=== PATIENT | male | born 1950 | race Caucasian/White ===

== ENCOUNTER 2018-12-25 11:23 | Inpatient (IN) | payer BC, MEDICARE, OTHER ==
[~2018-12-25] VITALS: Ht 177.8 cm; Wt 107.0 kg
[2018-12-25] MEDS ORDERED: IPRATROPIUM NEB FS 0.5 MG/2.5 ML AMPUL.NEB NEB ONE ×2 (11:30→13:00)
[2018-12-25] MEDS ORDERED: ALBUTEROL FS 2.5 MG/3 ML VIAL.NEB CONTNEB ONE ×2 (11:30→13:00)
[2018-12-25] MEDS ORDERED: methylPREDNISolone SOD SUCC 125 MG/2ML VIAL IV ONE (11:30)
[2018-12-25] MEDS ORDERED: ALBUTEROL FS 2.5 MG/3 ML VIAL.NEB ONE ×2 (11:31→12:36)
[2018-12-25] MEDS ORDERED: IPRATROPIUM NEB FS 0.5 MG/2.5 ML AMPUL.NEB ONE ×2 (11:31→12:36)
[2018-12-25] MEDS ORDERED: methylPREDNISolone SOD SUCC 125 MG/2ML VIAL ONE (11:34)
[2018-12-25 11:54] LABS: BASOPHILS # (AUTO) 0.1 /CMM (0.0-0.2); EOSINOPHILS % (AUTO) 5.7 % (0.0-6.0); HEMATOCRIT 45 % (39-51); HEMOGLOBIN 15.2 g/dL (13.5-17.5); LYMPHOCYTES # (AUTO) 3.6 /CMM (0.8-4.8); LYMPHOCYTES % (AUTO) 36.1 % (20.0-44.0); MEAN CORPUSCULAR HGB CONC 34 g/dl (31.0-36.0); MEAN CORPUSCULAR VOLUME 94 fL (80-96); MONOCYTES # (AUTO) 0.6 /CMM (0.1-1.30); MONOCYTES % (AUTO) 6.1 % (2.0-12.0); NEUTROPHILS % (AUTO) 51.1 % (43.0-81.0); PLATELET COUNT (AUTO) 170 /CMM (150-450); RED BLOOD CELL COUNT(AUTO) 4.81 MIL/uL (4.5-6.0); WHITE BLOOD COUNT (AUTO) 9.9 K/uL (4.3-11.0)
[2018-12-25 11:56] LABS: CALCIUM, SERUM 8.6 mg/dL (8.5-10.1); CARBON DIOXIDE 21 mmol/L (21-32); CHLORIDE 104 mmol/L (98-107); CREATININE 0.9 mg/dL (0.6-1.3); GLUCOSE 182 mg/dL (74-106); SODIUM SERUM 133 mmol/L (136-145); UREA NITROGEN, BLOOD 13 mg/dL (7-18)
[2018-12-25] MEDS ORDERED: UMEC1BLS IH (11:58)
[2018-12-25] MEDS ORDERED: ALBU8.5H8 INH (11:58)
[2018-12-25] MEDS ORDERED: SIMV40TA5 PO (11:58)
[2018-12-25 12:09] LABS: ALKALINE PHOSPHATASE 74 U/L (46-116); ASPARTATE AMINOTRANSFERASE 33 U/L (15-37); B-TYPE NATRIURETIC PEPTIDE 117 PG/ML (0-125); BILIRUBIN,TOTAL 0.6 mg/dL (0.2-1.0); TOTAL PROTEIN, SERUM 7.3 g/dL (6.4-8.2)
[2018-12-25 12:17] LABS: ALBUMIN 3.4 g/dL (3.4-5.0)
[2018-12-25 12:19] LABS: BILIRUBIN,DIRECT 0.1 mg/dL (0.0-0.2)
[2018-12-25 12:20] LABS: ALANINE AMINOTRANSFERASE 31 U/L (12-78)
--- NOTE | 2018-12-25 13:54 | NUR ---
NEW ADMISSION REPORT FROM ER NURSE AMADA. PATIENT IS BEING ADMITTED TO [facility] FOR COPD EXACERBATION. PER REPORT PATIENT IS TACHYCARDIC WITH HR OF 107 RR OF 22 AND ON THE 5 LITER SIMPLE FACE MASK AT 96%. PER REPORT PATIENT IS NOT IN ANY DISTRESS. PATIENT TO BE ADMITTED TO BED 325-2
--- NOTE | 2018-12-25 14:00 | NUR ---
PT BIBS AXOX4 C/O SOB, HX COPD
--- NOTE | 2018-12-25 14:01 | NUR ---
PT GOING TO ROOM 325-2 REPORT GIVEN TO Annika RN, PT STABLE [id number], ON 5L SIMPLE MASK/MIST
[2018-12-25 16:00] VITALS: BP 137/80
[2018-12-25] MEDS ORDERED: ACETAMINOPHEN 325 MG TABLET PO PRN (17:30)
[2018-12-25] MEDS ORDERED: HYDROCODONE/APAP 5/325MG 1 EACH TABLET PO PRN (17:30)
[2018-12-25] MEDS ORDERED: Z GUARD REMEDY 2 OZ OINT TP PRN (17:30)
[2018-12-25] MEDS ORDERED: ZOLPIDEM TARTRATE 5 MG TABLET PO PRN (17:30)
[2018-12-25] MEDS ORDERED: MAG HYDROX/AL HYDROX/SIMETH 30 ML UDC PO PRN (17:30)
[2018-12-25] MEDS ORDERED: ONDANSETRON HCL/PF 4 MG/2 ML VIAL IVP PRN (17:30)
[2018-12-25] MEDS ORDERED: MAGNESIUM HYDROXIDE 30 ML UDC PO PRN (17:30)
[2018-12-25] MEDS ORDERED: CEFTRIAXONE 1 G VIAL IM SCH (17:30)
[2018-12-25] MEDS: AZITHROMYCIN 500 MG in IV D5W 250 ML IV SCH (19:04)
[2018-12-25] MEDS: ALBUTEROL FS 2.5 MG/0.5 ML VIAL.NEB NEB SCH (19:20)
[2018-12-25] MEDS: IPRATROPIUM NEB FS 0.5 MG/2.5 ML AMPUL.NEB NEB SCH (19:20)
[2018-12-25 20:00] VITALS: BP 151/76
--- NOTE | 2018-12-25 20:00 | NUR ---
SUPERVISOR ACCOUNTS RECEIVABLE OPENING NOTES RECEIVED PATIENT IN BED AWAKE, ALERT AND ORIENTED X4, VERBALLY RESPONSIVE, ABLE TO MAKE NEEDS KNOWN. BREATHING EVEN AND UNLABORED. NO SOB NOTED. ON 3LPM OXYGEN VIA NC. TOLERATING WELL. NO COMPLAINTS OF PAIN OR DISCOMFORT. NO FACIAL GRIMACING .IV ON LEFT HAND INTACT AND PATENT WITH IV ATB RUNNING AT THE MOMENT. SKIN DRY AND WARM TO TOUCH. AFEBRILE. ALL OTHER NEEDS ATTENDED TO .SAFETY MEASURES IN PLACE. CALL LIGHT WITHIN REACH, WILL CONTINUE TO MONITOR L
[2018-12-25] MEDS: CEFTRIAXONE 1 G in IV D5W 50 ML IV SCH (20:10)
[2018-12-26] VITALS (7 sets, daily range): BP systolic 103–154; BP diastolic 58–79
--- NOTE | 2018-12-26 03:00 | NUR ---
WORSHIP DIRECTOR NOTES PATIENT SLEEPING, EASILY AROUSABLE. NO DISTRESS. BREATHING EVEN AND UNLABORED. ON 3LPM OXYGEN VIA NC. SP02 WNL. NO COMPLAINTS OF PAIN OR DISCOMFORT. ALL NEEDS MET. WILL CONTINUE TO MONITOR.
--- NOTE | 2018-12-26 06:30 | NUR ---
WAFER MACHINE OPERATOR CLOSING NOTES PATIENT RESTING IN BED. NO ACUTE CHANGES THROUGHOUT SHIFT. BREATHING EVEN AND UNLABORED. NO SOB NOTED. ON 3LPM OXYGEN VIA NC. TOLERATING WELL. NO COMPLAINTS OF PAIN OR DISCOMFORT. NO FACIAL GRIMACING. IV ON LEFT HAND INTACT AND PATENT. ALL OTHER NEEDS ATTENDED TO .SAFETY MEASURES IN PLACE. CALL LIGHT WITHIN REACH. WILL ENDORSE TO ONCOMING NURSE FOR JOSE.
[2018-12-26 07:29] LABS: BASOPHILS % (AUTO) 0.1 % (0.0-2.0); HEMATOCRIT 45 % (39-51); LYMPHOCYTES # (AUTO) 1.2 /CMM (0.8-4.8); LYMPHOCYTES % (AUTO) 7.7 % (20.0-44.0); MEAN CORPUSCULAR HGB CONC 33 g/dl (31.0-36.0); MEAN CORPUSCULAR VOLUME 94 fL (80-96); MONOCYTES # (AUTO) 0.7 /CMM (0.1-1.30); MONOCYTES % (AUTO) 4.9 % (2.0-12.0); NEUTROPHILS # (AUTO) 13.1 /CMM (1.8-8.9); NEUTROPHILS % (AUTO) 87.3 % (43.0-81.0); PLATELET COUNT (AUTO) 180 /CMM (150-450); RED BLOOD CELL COUNT(AUTO) 4.78 MIL/uL (4.5-6.0)
[2018-12-26 07:46] LABS: CALCIUM, SERUM 8.7 mg/dL (8.5-10.1); CREATININE 1.2 mg/dL (0.6-1.3); MAGNESIUM 2.5 mg/dL (1.8-2.4); PHOSPHORUS 3.8 mg/dL (2.5-4.9); POTASSIUM 4.3 mmol/L (3.5-5.1)
[2018-12-26] MEDS: ALBUTEROL FS 2.5 MG/0.5 ML VIAL.NEB NEB SCH ×4 (08:03→20:03)
[2018-12-26] MEDS: IPRATROPIUM NEB FS 0.5 MG/2.5 ML AMPUL.NEB NEB SCH ×4 (08:03→20:03)
[2018-12-26] MEDS: SIMVASTATIN 40 MG TABLET PO SCH ×2 (08:10→21:41)
[2018-12-26] MEDS: PANTOPRAZOLE 40 MG TABLET.DR PO SCH (08:10)
[2018-12-26] MEDS: methylPREDNISolone SOD SUCC 125 MG/2ML VIAL IV SCH ×3 (08:11→17:20)
[2018-12-26] MEDS: FLUTICASONE/VILANTEROL 1 EACH BLST.W.DEV IH SCH (08:12)
[2018-12-26] MEDS: AZITHROMYCIN 500 MG in IV D5W 250 ML IV SCH (17:19)
[2018-12-26] MEDS: CEFTRIAXONE 1 G in IV D5W 50 ML IV SCH (18:37)
--- NOTE | 2018-12-26 19:22 | NUR ---
PATIENT SITTING ON BED, AT BEDSIDE. NO DISTRESS. BREATHING EVEN AND UNLABORED. ON 3LPM OXYGEN VIA NC. NO COMPLAINTS OF PAIN OR DISCOMFORT. ALL NEEDS MET. WILL ENDORSE TO NEXT SHIFT
--- NOTE | 2018-12-26 19:55 | NUR ---
MS RN NOTE: PATIENT RESTING IN BED, NO ACUTE DISTRESS NOTED, FAMILY AT BEDSIDE. BREATHING EVEN AND UNLABORED, NO SOB NOTED. IV TO LEFT HAND IN PLACE. BED LOCKED AND IN LOWEST POSITION, CALL LIGHT IN REACH, WILL CONTINUE TO MONITOR.
--- NOTE | 2018-12-26 22:50 | NUR ---
MS RN NOTE: REPORT GIVEN TO NILS CABRERA FOR CONTINUATION OF CARE. PATIENT RESTING IN BED, NO ACUTE DISTRESS NOTED. WILL CONTINUE TO MONITOR.
--- NOTE | 2018-12-26 22:50 | NUR ---
RN MS NOTES RECEIVED PATIENT IN BED AWAKE ALERT AND ORIENTED X 4, VERBALLY RESPONSIVE, RESPIRATIONS EVEN AND UNLABORED CURRENTLY ON 02 VIA NC , NO DISTRESS PRESENT, DENIES ANY PAIN OR DISCOMFORT AT THIS TIME, IV SITE TO LEFT HAND #22 G INTACT AND PATENT , NO REDNESS, NO INFILTRATION PRESENT, ORIENTED TO STAFF AND CALL LIGHT, SAFETY PRECAUTIONS IN PLACE, SAFETY PRECAUTIONS IN PLACE, LOW BED AND LOCKED, ALL NEEDS ATTENDED REMAINS COMFORTABLE AT THIS TIME, WILL CONTINUE TO ATTENDS NEEDS.
--- NOTE | 2018-12-27 06:44 | NUR ---
RN MS CLOSING NOTES PATIENT IN BED AWAKE ALERT AND ORIENTED X 4, VERBALLY RESPONSIVE, RESPIRATIONS EVEN AND UNLABORED CURRENTLY ON 02 VIA NC , NO DISTRESS PRESENT, DENIES ANY PAIN OR DISCOMFORT AT THIS TIME, IV SITE TO LEFT HAND #22 G INTACT AND PATENT , NO REDNESS, NO INFILTRATION PRESENT, CALL LIGHT KEPT WITHIN REACH, URINAL OFFERED AND WITHIN REACH, SAFETY PRECAUTIONS IN PLACE, LOW BED AND LOCKED, ALL NEEDS ATTENDED REMAINS COMFORTABLE AT THIS TIME, WILL CONTINUE TO MONITOR AND ENDORSE TO NEXT SHIFT.
--- NOTE | 2018-12-27 07:20 | NUR ---
RN NOTES PATIENT A/OX4, BREATHING EVEN AND UNLABORED AT THIS TIME, REMOVED O2 INH, AND WILL MONITOR IN ROOM AIR. PATIENT DENIES DIFFICULTY BREATHING, HE STATED HE FELT HE WAS OK LAST NIGHT WITHOUT ANY OXYGEN. KEPT PATIENT COMFORTABLE, CALL LIGHT WITHIN REACH, WILL CONTINUE TO MONITOR.
[2018-12-27 08:00] VITALS: BP 147/80
--- NOTE | 2018-12-27 08:00 | NUR ---
RN NOTES PATIENT NOTED TO HAVE SPO2 OF 87% IN ROOM AIR, INFORMED PATIENT TO USE OXYGEN AT 2LPM VIA NC TO KEEP SPO2 > 90-92%. SLIGHTLY LABORED BREATHING. BUT NO SOB. PATIENT AGREED WITH USING O2 INHALATION.
[2018-12-27] MEDS: PANTOPRAZOLE 40 MG TABLET.DR PO SCH (08:28)
[2018-12-27] MEDS: methylPREDNISolone SOD SUCC 125 MG/2ML VIAL IV SCH ×2 (08:28→12:43)
[2018-12-27] MEDS: FLUTICASONE/VILANTEROL 1 EACH BLST.W.DEV IH SCH (08:28)
[2018-12-27] MEDS: ALBUTEROL FS 2.5 MG/0.5 ML VIAL.NEB NEB SCH ×4 (08:32→19:58)
[2018-12-27] MEDS: IPRATROPIUM NEB FS 0.5 MG/2.5 ML AMPUL.NEB NEB SCH ×4 (08:32→19:58)
[2018-12-27 16:00] VITALS: BP 135/68
[2018-12-27] MEDS: methylPREDNISolone SOD SUCC 40 MG/ML VIAL IV SCH (17:03)
[2018-12-27] MEDS: AZITHROMYCIN 500 MG in IV D5W 250 ML IV SCH (17:07)
[2018-12-27] MEDS: CEFTRIAXONE 1 G in IV D5W 50 ML IV SCH (18:09)
--- NOTE | 2018-12-27 18:52 | NUR ---
RN NOTES PATIENT A/OX4, STILL ON O2 AT 2LPM VIA NC. BREATHING EVEN AND UNLABORED, NO SOB NOTED. PATIENT'S OXYGEN TANK AT BEDSIDE, DELIVERED BY INSURANCE. DENIES PAIN OR DISCOMFORT NOTED, NEEDS ATTENDED AND MET, CALL LIGHT WITHIN REACH, WILL ENDORSE TO EXCHANGE ARCHITECT FOR JOSE.
--- NOTE | 2018-12-27 19:13 | NUR ---
MS RN RECEIVE PT IN BED. A/O X3, RESPIRATIONS EVEN AND UNLABORED, NO SOB NOTED, NO DISTRESS, SAFETY MEASURES IN PLACE. WILL CONTINUE TO MONITOR.
[2018-12-27 20:00] VITALS: BP 138/67
[2018-12-27] MEDS: SIMVASTATIN 40 MG TABLET PO SCH (21:29)
--- NOTE | 2018-12-28 06:14 | NUR ---
MS RN CLOSING NOTE IN BED ASLEEP COMFORTABLY AND EASILY AWAKEN, STABLE. RESPIRATIONS EVEN AND UNLABORED. NURSING CARE RENDERED. NEEDS ATTENDED AND ANTICIPATED, KEPT DRY, CLEAN AND COMFORT. NO COMPLAIN OF PAIN. SAFETY MEASURES IN PLACE, BED IN LOW LOCKED POSITION, CALL LIGHT WITHIN EASY REACH. ENDORSE TO NEXT SHIFT CONTINUITY OF CARE.
[2018-12-28 06:43] LABS: BASOPHILS % (AUTO) 0.1 % (0.0-2.0); HEMATOCRIT 45 % (39-51); HEMOGLOBIN 15.1 g/dL (13.5-17.5); LYMPHOCYTES % (AUTO) 6.9 % (20.0-44.0); MEAN CORPUSCULAR HGB CONC 33 g/dl (31.0-36.0); MEAN CORPUSCULAR VOLUME 94 fL (80-96); MONOCYTES # (AUTO) 0.5 /CMM (0.1-1.30); MONOCYTES % (AUTO) 3.8 % (2.0-12.0); NEUTROPHILS # (AUTO) 12.4 /CMM (1.8-8.9); NEUTROPHILS % (AUTO) 89.2 % (43.0-81.0); PLATELET COUNT (AUTO) 171 /CMM (150-450); RED BLOOD CELL COUNT(AUTO) 4.83 MIL/uL (4.5-6.0); WHITE BLOOD COUNT (AUTO) 13.9 K/uL (4.3-11.0)
[2018-12-28 07:09] LABS: CALCIUM, SERUM 8.5 mg/dL (8.5-10.1); CREATININE 1.2 mg/dL (0.6-1.3); POTASSIUM 4.2 mmol/L (3.5-5.1)
[2018-12-28] MEDS: IPRATROPIUM NEB FS 0.5 MG/2.5 ML AMPUL.NEB NEB SCH ×3 (07:23→15:24)
[2018-12-28] MEDS: ALBUTEROL FS 2.5 MG/0.5 ML VIAL.NEB NEB SCH ×3 (07:23→15:24)
[2018-12-28 08:00] VITALS: BP 125/87
--- NOTE | 2018-12-28 08:05 | NUR ---
RN NOTES RECEIVED PATIENT IN THE BED GETTING BREATHING TREATMENT WITH RT, PATIENT HAS SLIGHT SOB WHEN WALKING. V/S TAKEN STABLE. SCHEDULED MEDICATION ADMINISTERED. PATIENT A/O X4, REFUSED PAIN AT THIS TIME. CALL LIGHT WITHIN TO REACH, HAS A IV ACCESS ON RIGHT HAND INTACT, NEEDS ATTENDED AND ANTICIPATED, CALL LIGHT WITHIN TO REACH, SAFETY PRECAUTION MAINTAINED ALL THE TIME.
[2018-12-28] MEDS: PANTOPRAZOLE 40 MG TABLET.DR PO SCH (09:59)
[2018-12-28] MEDS: methylPREDNISolone SOD SUCC 40 MG/ML VIAL IV SCH ×2 (09:59→16:58)
[2018-12-28] MEDS: FLUTICASONE/VILANTEROL 1 EACH BLST.W.DEV IH SCH (10:00)
--- NOTE | 2018-12-28 12:00 | NUR ---
RN NOTES PATIENT STABLE IN THE BED ON O2 -3L NC, PATIENT HAS NO ACUTE RESPIRATORY DISTRESS, SCHEDULED MEDICATION ADMINISTERED, SEEN BY INGRID OSEGUERA. PATIENT WILL D/C HOME BY ORDER OF O2 AT HOME LATER TODAY AFTER BREATHING TREATMENT. NEXT TO THE BED , CONTINUED MONITORING.
[2018-12-28 16:21] VITALS: BP 130/87
[2018-12-28] MEDS ORDERED: LACTOBACILLUS RHAMNOSUS GG 1 EACH CAP.SPRINK PO SCH (17:00)
--- NOTE | 2018-12-28 17:39 | NUR ---
MOLDER FOAM RUBBER NOTES PATIENT DISCHARGE AT THIS TIME GOING HOME. SCHEDULED MEDICATION ADMINISTERED,. PATIENT GET BREATHING TREATMENT. PATIENT REFUSED SOB, AND REFUSED PAIN AT THIS TIME. V/S STABLE. PATIENT GOING HOME WITH O2-3LNC TANK. MED RECONCILIATION AND DISCHARGE ORDER REVIEWED AND EXPLAINED TO PATIENT AND DAUGHTER. PATIENT VERBALIZED UNDERSTANDING. PRESCRIPTION HANDED TO THE PATIENT. PATIENT SIGN PAPERWORK. PATIENT WILL FOLLOW 01/01/19 [facility] 1200PM. PATIENT [employer] COURTESY CLERK BY DAUGHTER NAME RODRIGO PHONE # [phone]. ESCORTED PATIENT TO THE LOBBY FOR SAFETY.
== END 2018-12-28 17:54 | disposition home or self-care (01) | DRG 193 ==
LOC: ER 11:23 → TELE 13:50 → MED 12-26 11:02 → MEDSG2 12-27 20:15
PROVIDERS: ADMIT Student in an Organized Health Care Education/Training Program; ATTEND Nurse Practitioner Acute Care
DX: J15.9 Unspecified bacterial pneumonia (principal); J96.01 Acute respiratory failure with hypoxia; J44.1 Chronic obstructive pulmonary disease with (acute) exacerbation; J44.0 Chronic obstructive pulmonary disease with (acute) lower respiratory infection; J40 Bronchitis, not specified as acute or chronic; G47.33 Obstructive sleep apnea (adult) (pediatric); Z66 Do not resuscitate; E11.9 Type 2 diabetes mellitus without complications; E66.9 Obesity, unspecified; N40.0 Benign prostatic hyperplasia without lower urinary tract symptoms; E78.5 Hyperlipidemia, unspecified; Z87.891 Personal history of nicotine dependence; D72.829 Elevated white blood cell count, unspecified; Z68.33 Body mass index [BMI] 33.0-33.9, adult; Z79.84 Long term (current) use of oral hypoglycemic drugs; Z91.19 Patient's noncompliance with other medical treatment and regimen
CPT/HCPCS: 31720; 36415; 71045-TC; 80048-TC; 80061-TC; 80076-TC; 83605-TC; 83735-TC; 83880; 84100-TC; 84484-TC; 85025-TC; 87040-TC; 87070-TC; 87081-TC; 93307-TC; 94799-TC; G0378; J0456; J0696; J2920; J2930; J7050; J7060